=== PATIENT | female | born 1970 | race Caucasian/White ===

== ENCOUNTER 2017-10-23 19:27 | Emergency (ER) | payer MEDICAID, OTHER ==
[~2017-10-23] VITALS: Ht 165.1 cm; Wt 49.9 kg
--- NOTE | 2017-10-23 19:40 | NUR ---
PT A/OX4 BREATHING EFFORTLESSLY ON ROOM AIR, PT C/O ABSCESS ON LEFT HIP X 2 DAYS, PT STATES SHE HAS BEEN SHOOTING UP IN THAT HIP AND NOW THERE IS AN ABSCESS, PT FRIEND IN ROOM, PT IN GOWN, ON MONITOR, MADE AWARE WILL CONTINUE TO MONITOR.
[2017-10-23] MEDS ORDERED: CLINDAMYCIN 900 MG in IV D5W 100 ML IM ONE (20:00)
[2017-10-23] MEDS ORDERED: HYDROMORPHONE 1 MG/1 ML DISP.SYRIN IM ONE (20:00)
[2017-10-23] MEDS ORDERED: LIDOCAINE HCL/PF 1% 30 ML VIAL TP ONE (20:00)
[2017-10-23] MEDS ORDERED: HYDROMORPHONE 1 MG/1 ML DISP.SYRIN ONE (20:10)
[2017-10-23] MEDS ORDERED: LIDOCAINE HCL/PF 1% 30 ML SDV ONE (20:11)
[2017-10-23] MEDS ORDERED: CLINDAMYCIN HCL 150 MG CAPSULE PO ONE ×2 (20:20→21:30)
[2017-10-23] MEDS ORDERED: CLINDAMYCIN 900 MG in IV D5W 50 ML IV ONE (20:30)
[2017-10-23] MEDS ORDERED: CLINDAMYCIN 900 MG/6 ML VIAL IM ONE (20:30)
[2017-10-23 21:49] VITALS: BP 124/70
== END 2017-10-23 21:50 | disposition home or self-care (01) ==
LOC: ER 19:30
DX: L02.416 Cutaneous abscess of left lower limb (principal); F11.10 Opioid abuse, uncomplicated; Z88.0 Allergy status to penicillin; Z98.890 Other specified postprocedural states
CPT/HCPCS: 10060; 99283; A4606; A6402 ×2; A6407; J1170; J3490 ×3; J7060; Z7610

== ENCOUNTER 2017-11-29 23:53 | Emergency (ER) | payer MEDICAID ==
[~2017-11-29] VITALS: Ht 167.6 cm; Wt 54.4 kg
--- NOTE | 2017-11-30 00:06 | NUR ---
PT BIBSELF AMBULATORY TO ER BED 2 PT C/O RIGHT 1ST TOE PAIN, SWELLING X 2 DAYS. PT AOX3 RR EVEN AND UNLABORED. NO SOB NOTED. NAD NOTED. NO NVD AT THIS TIME. PT GOWNED AND PLACED ON MONITOR WAITING FOR MD [place]ANE.
--- NOTE | 2017-11-30 00:22 | NUR ---
DR. THOMPSON AT BEDSIDE FOR EVAL.
[2017-11-30] MEDS ORDERED: SULFAMETH/TRIMETH 800/160 MG 1 UDTAB TABLET PO ONE ×2 (00:30→00:51)
[2017-11-30] MEDS ORDERED: CEFTRIAXONE 1 G VIAL IM ONE (00:30)
[2017-11-30] MEDS ORDERED: ONDANSETRON 4 MG TAB.RAPDIS SL ONE (00:30)
[2017-11-30] MEDS ORDERED: HYDROCODONE/APAP 10/325MG 1 EA TABLET PO ONE (00:30)
[2017-11-30] MEDS ORDERED: HYDROCODONE/APAP 10/325MG 1 EA TABLET ONE (00:51)
[2017-11-30] MEDS ORDERED: ONDANSETRON 4 MG TAB.RAPDIS ONE (00:51)
[2017-11-30] MEDS ORDERED: LIDOCAINE /MPF 1% VIAL 5 ML VIAL ONE (00:54)
[2017-11-30] MEDS ORDERED: CEFTRIAXONE 1 G VIAL ONE (00:54)
--- NOTE | 2017-11-30 01:02 | NUR ---
Patient discharged to home in stable condition. Written and verbal after care instructions given. Patient verbalizes understanding of instruction. ambulatory with a steady gait. instructed pt not to drive. pt verbalize understanding.
[2017-11-30 01:04] VITALS: BP 116/58
== END 2017-11-30 01:47 | disposition home or self-care (01) ==
LOC: ER 11-30
DX: L03.031 Cellulitis of right toe (principal); Z88.0 Allergy status to penicillin; Z98.890 Other specified postprocedural states
CPT/HCPCS: 96372; 99284; A4606; J0696; J3490; J7030; Q0162; Z7610

== ENCOUNTER 2017-12-06 07:32 | Inpatient (IN) | payer MEDICAID ==
[~2017-12-06] VITALS: Ht 165.1 cm; Wt 49.9 kg
[2017-12-06] MEDS ORDERED: VANCOMYCIN 1 GM in IV D5W 250 ML IV ONE (08:30)
[2017-12-06] MEDS ORDERED: LEVOFLOXACIN 750 MG /D5W 150ML 150 ML IV ONE ×2 (08:30→09:21)
[2017-12-06 08:50] LABS: BASOPHILS % (AUTO) 0.5 % (0.0-2.0); EOSINOPHILS # (AUTO) 0.3 /CMM (0.0-0.7); EOSINOPHILS % (AUTO) 4.3 % (0.0-6.0); HEMATOCRIT 36 % (33-45); HEMOGLOBIN 11.8 g/dL (11.5-14.8); LYMPHOCYTES # (AUTO) 0.7 /CMM (0.8-4.8); LYMPHOCYTES % (AUTO) 10.9 % (20.0-44.0); MEAN CORPUSCULAR HEMOGLOBIN 25 PG (26.0-33.0); MEAN CORPUSCULAR HGB CONC 33 g/dl (31.0-36.0); MEAN CORPUSCULAR VOLUME 76 fL (82-100); MONOCYTES # (AUTO) 0.8 /CMM (0.1-1.30); MONOCYTES % (AUTO) 11.9 % (2.0-12.0); NEUTROPHILS # (AUTO) 4.7 /CMM (1.8-8.9); NEUTROPHILS % (AUTO) 72.4 % (43.0-81.0); PLATELET COUNT (AUTO) 634 /CMM (150-450); RDW COEFFICIENT OF VARIATION 14.7 (11.5-15.0); RED BLOOD CELL COUNT(AUTO) 4.74 MIL/uL (4.0-5.2); WHITE BLOOD COUNT (AUTO) 6.6 K/uL (4.3-11.0)
--- NOTE | 2017-12-06 08:50 | NUR ---
AAOX3, CAME TO ER C/O RIGHT BIG TOE ABSCESS X 4 DAYS. RR IS EVEN AND UNLABORED WITH NAD NOTED. SKIN IS WARM AND DRY. PLACED ON HOSPITAL GOWN. PROVIDED WARM BLANKET FOR COMFORT.
--- NOTE | 2017-12-06 09:09 | NUR ---
PANEL ON-CALL PAGED
--- NOTE | 2017-12-06 09:10 | NUR ---
REPORT GIVEN TO ASHA ROMERO FOR TRENA
[2017-12-06 09:15] LABS: INR 0.9 (0.87-1.13)
[2017-12-06 09:24] LABS: ALANINE AMINOTRANSFERASE 74 U/L (12-78); ALKALINE PHOSPHATASE 97 U/L (46-116); ASPARTATE AMINOTRANSFERASE 43 U/L (15-37); BILIRUBIN,DIRECT 0.1 mg/dL (0.0-0.2); BILIRUBIN,TOTAL 0.3 mg/dL (0.2-1.0); CARBON DIOXIDE 27 mmol/L (21-32); CHLORIDE 104 mmol/L (98-107); CREATININE 0.7 mg/dL (0.6-1.3); GLUCOSE 92 mg/dL (74-106); POTASSIUM 4.2 mmol/L (3.5-5.1); SODIUM SERUM 137 mmol/L (136-145); TOTAL PROTEIN, SERUM 8.5 g/dL (6.4-8.2); UREA NITROGEN, BLOOD 22 mg/dL (7-18)
--- NOTE | 2017-12-06 09:24 | NUR ---
CAPPITATED TO [facility] CALLING NOW
--- NOTE | 2017-12-06 09:25 | NUR ---
PT IS CAPITED TO [facility] PER LEBRON @ ADMITTING OFFICE. LEBRON WILL PALCE A CALL WITH [facility] FOR TRANSFER. COUNT DOWN TIME: 0925AM 12/06/17.
[2017-12-06 09:26] LABS: TROPONIN I < 0.017 ng/mL (0.00-0.056)
--- NOTE | 2017-12-06 09:45 | NUR ---
HIVES AND REDNESS NOTED ON LEFT FOREARM. STOPPED THE INFUSION. DR EWING MADE AWARE. VERBALLY ORDERED IVP BENADRYL 50MG
[2017-12-06] MEDS ORDERED: diphenhydrAMINE HCL 50 MG/ML VIAL ONE (09:46)
[2017-12-06] MEDS ORDERED: diphenhydrAMINE HCL 50 MG/ML VIAL IV ONE (10:00)
--- NOTE | 2017-12-06 11:57 | NUR ---
MS RN NOTES RECEIVED REPORT FROM [facility]. PATIENT VS STABLE UPON TRANSFER.
[2017-12-06] MEDS ORDERED: CLINDAMYCIN IV RTU IN D5W 900 MG/50 ML PIGGYBACK IV SCH (12:00)
[2017-12-06 12:18] LABS: APPEARANCE,URINE SL CLOUDY (CLEAR); BILIRUBIN,URINE NEGATIVE (NEGATIVE); BLOOD, URINE TRACE-INTA Ery/uL (NEGATIVE); COLOR,URINE YELLOW (YELLOW); KETONES,URINE NEGATIVE (NEGATIVE); LEUKOCYTE ESTERASE ,URINE NEGATIVE (NEGATIVE); NITRITE, URINE NEGATIVE (NEGATIVE); PROTEIN,URINE NEGATIVE (NEGATIVE); UGLUCOSE NEGATIVE (NEGATIVE)
[2017-12-06 12:38] VITALS: BP 114/75
--- NOTE | 2017-12-06 12:52 | NUR ---
MS RN NOTES CONTACTED [facility] REGARDING WOUND CULTURE. CULTURE TOMORROW AFTER WOUND DEBRIDEMENT
[2017-12-06 12:59] LABS: BACTERIA,URINE Few /HPF (None Seen); RBC,URINE 0-2 /HPF (0-2); SQUAMOUS EPITHELIAL CELL,UR Few /HPF (None Seen)
[2017-12-06] MEDS: CLINDAMYCIN 900 MG in IV D5W 50 ML IV SCH ×2 (13:21→21:46)
--- NOTE | 2017-12-06 14:00 | NUR ---
MS/RN NOTES RECEIVED REPORT FROM DAY SHIFT NURSE FOR TRENA. PATIENT RESTING IN BED COMFORTABLY, NO S/S OF DISTRESS OR DISCOMFORT NOTED. PATIENT DENIES PAIN AT THIS TIME. PT ALERT AND ORIENTED X4, VERBALLY RESPONSIVE, ON ROOM AIR, BREATHING EVEN AND UNLABORED. PT ADMITTED FOR NECROTIC RIGHT BIG TOE WOUND PLAN OF DEBRIDEMENT. IV TO LEFT FA 20G INTACT H/L. SAFETY MEASURES RENDERED, CALL LIGHT PLACED WITHIN REACH. WILL CONTINUE TO MONITOR.
--- NOTE | 2017-12-06 14:01 | NUR ---
WOUND CARE CONSULT WOUND CARE RECEIVED CONSULT FOR TOE WOUND. WOUND CARE WILL DEFER TO PODIATRIC SURGEON FOR CONSULT AND TREATMENT PLAN. PATIENT WITH HARVEY AT 23 AT THIS TIME.
--- NOTE | 2017-12-06 19:42 | NUR ---
MS/RN NOTES PATIENT RESTING IN BED COMFORTABLY. NO S/S OF DISTRESS OR DISCOMFORT NOTED. PATIENT DENIES PAIN OR DISCOMFORT AT THIS TIME. PATIENT SIGNED ALL CONSENTS FOR PENDING SX FOR AM. NPO MIDNIGHT ORDERED BY MD. ALL NEEDS MET AND ATTENDED, SAFETY MEASURES RENDERED, CALL LIGHT PLACED WITHIN REACH. WILL ENDORSE CARE TO WINE MANAGER FOR TRENA
[2017-12-06 20:00] VITALS: BP 107/63
--- NOTE | 2017-12-06 20:00 | NUR ---
RN INITIAL NOTES RECEIVED PATIENT RESTING IN BED COMFORTABLY. NO S/S OF DISTRESS OR DISCOMFORT NOTED. PATIENT DENIES PAIN OR DISCOMFORT AT THIS TIME. IV IN PTS L FA H/L. SAFETY MEASURES IN PLACE , CALL LIGHT PLACED WITHIN REACH.BED IN LOW LOCKED POSITION. WILL ENDORSE TO AM RN.
[2017-12-07] VITALS: BP 107/63
[2017-12-07 04:00] VITALS: BP 93/60
[2017-12-07] MEDS: CLINDAMYCIN 900 MG in IV D5W 50 ML IV SCH ×3 (04:37→21:23)
[2017-12-07] MEDS ORDERED: LIDOCAINE 1%-EPI 1:100,000 20 ML VIAL ONE (06:52)
[2017-12-07] MEDS ORDERED: BUPIVACAINE 0.5 % PF 150 MG/30 ML VIAL ONE (06:52)
[2017-12-07] MEDS ORDERED: ANESTHESIA TRAY IN PYXIS 1 EA TRAY MC ONE (06:52)
[2017-12-07] MEDS ORDERED: LIDOCAINE 1% INJ 50 ML MDV IJ ONE (07:04)
[2017-12-07] MEDS ORDERED: FENTANYL PF 100MCG/2ML AMPUL ONE (07:06)
[2017-12-07] MEDS ORDERED: MIDAZOLAM HCL 2 MG/2ML VIAL ONE (07:07)
--- NOTE | 2017-12-07 07:31 | NUR ---
MS RN OPENING NOTES RECEIVED REPORT OF THE PATIENT. PATIENT IS IN OPERATION ROOM. PATIENT LEFT THE FLOOR AT 0630. WILL ASSESS AND MONITOR WHEN PATIENT RETURNS TO THE UNIT.
--- NOTE | 2017-12-07 07:38 | NUR ---
RN CLOSING NOTES PT WENT TO THE OR AT 0630, FOR DEBRIDEMENT OF R GREAT TOE.NO CHANGE IN PTS CONDITION OVER NIGHT.
[2017-12-07] MEDS ORDERED: POVIDONE-IODINE OINT 28.4 GM TUBE ONE (07:40)
[2017-12-07 08:00] VITALS: BP 106/70
--- NOTE | 2017-12-07 08:40 | NUR ---
PATIENT RETURNED FROM OR IN STABLE CONDITION. IN NO APPARENT DISTRESS. PATIENT DOES NOT REPORT ANY PAIN. VITAL SIGNS WNL. WILL CONTINUE TO MONITOR.
[2017-12-07] MEDS: MORPHINE SULFATE INJ 4 MG/ML DISP.SYRIN IV PRN (10:52)
--- NOTE | 2017-12-07 10:52 | NUR ---
PATIENT REPORTS 9/10 PAIN IN THE RIGHT TOE FROM HER DEBRIDEMENT. GAVE 2MG IV MORPHINE.
[2017-12-07] MEDS: KETOROLAC TROMETHAMINE INJ 30 MG/ML VIAL IV SCH ×3 (14:00→19:56)
[2017-12-07] MEDS: METHADONE HCL 10 MG TABLET PO SCH ×2 (14:00→14:31)
[2017-12-07] MEDS: ACETAMINOPHEN 325 MG TABLET PO SCH ×3 (14:00→19:56)
[2017-12-07 16:00] VITALS: BP 97/55
--- NOTE | 2017-12-07 18:53 | NUR ---
MS RN CLOSING NOTES PATIENT IS IN STABLE CONDITION. IN NO APPARENT DISTRESS. BEDSIDE RAILS ARE UPX2. BED IS LOCKED AND LOWERED. IV LINE IS INTACT AND PATENT. CALL LIGHT IS WITHIN REACH. ALL NEEDS WERE MET. WILL ENDORSE CARE TO VP OF CUSTOMER EXPERIENCE STRATEGY NURSE FOR TRENA.
--- NOTE | 2017-12-07 19:45 | NUR ---
MS RN NOTE RECEIVED PATIENT FROM DAY SHIFT, PATIENT IS ALERT AND ORIENTEDX3, AMBULATORY WITH A WALKER. DENIES RESPIRATORY DISTRESS AND COMPLAINS OF PAIN ON RIGHT FOOT, WILL ADMINISTER PAIN MED PER ORDER. LEFT FA IV IS PATENT AND INTACT, HL ONLY. SRX2, BED IN LOW POSITION, CALL LIGHT WITHIN REACH, WILL CONTINUE TO MONITOR PATIENT.
--- NOTE | 2017-12-07 21:30 | NUR ---
MS RN NOTE PATIENT'S IV SITE WAS SWOLLEN AND COMPLAINS OF BURNING SENSATION. REINSERTED IV ACCESS ON LEFT FA 22G, GOOD BLOOD RETURN NOTED.
[2017-12-08] MEDS: KETOROLAC TROMETHAMINE INJ 30 MG/ML VIAL IV SCH ×3 (01:46→13:06)
[2017-12-08] MEDS: ACETAMINOPHEN 325 MG TABLET PO SCH ×4 (01:46→20:18)
[2017-12-08 04:00] VITALS: BP 95/57
[2017-12-08] MEDS: CLINDAMYCIN 900 MG in IV D5W 50 ML IV SCH ×3 (04:59→20:18)
--- NOTE | 2017-12-08 06:51 | NUR ---
MS RN NOTE PATIENT IS SLEEPING IN BED COMFORTABLY, NO ACUTE EVENT NOTED THROUGHOUT THE TOY PAINTER. WILL ENDORSE TO DAY SHIFT FOR TRENA.
--- NOTE | 2017-12-08 07:30 | NUR ---
RN MS NOTES PT IN BED, ASLEEP, BREATHING PATTERN NORMAL, WITH COMPLAINT OF PAIN TO RIGHT BIG TOE, DRESSING DRY AND INTACT, CALL LIGHT WITHIN REACH, NEEDS ATTENDED.
[2017-12-08 08:00] VITALS: BP 107/69
[2017-12-08] MEDS: METHADONE HCL 10 MG TABLET PO SCH (08:16)
--- NOTE | 2017-12-08 12:32 | NUR ---
RN MS NOTES PT IN BED, ASLEEP, EASILY AROUSABLE, NO COMPLAINT OF PAIN AT THIS TIME, RESPIRATIONS NORMAL, CALL LIGHT WITHIN REACH, NEEDS ATTENDED.
[2017-12-08 16:00] VITALS: BP 109/70
[2017-12-08] MEDS: MORPHINE SULFATE INJ 4 MG/ML DISP.SYRIN IV PRN ×2 (16:22→20:25)
--- NOTE | 2017-12-08 18:07 | NUR ---
RN MS NOTES PT IN BED, AWAKE, ALERT AND ORIENTED, PAIN MEDICATION GIVEN FOR RIGHT BIG TOE PAIN, ASSISTED WITH NEEDS, ACCOMPANIED PT OUTSIDE TO SMOKE, PT SIGNED SMOKING WAIVER FORM, PT AWARE THAT THE HOSPITAL IS A NON SMOKING FACILITY, PT SEEN BY DR. JAMISON TODAY, CALL LIGHT WITHIN REACH, NEEDS ATTENDED.
--- NOTE | 2017-12-08 19:30 | NUR ---
MS RN OPENING NOTES: PATIENT IN BED, AOX4, ON ROOM AIR, BREATHING EVEN AND UNLABORED. APPEARS CALM AND IN NO DISTRESS, BUT STATES THAT SHE HAS 7/10 PAIN VOER HER R BIG TOE. NOTED R TOE WITH CLEAN AND INTACT DRESSING, R FOOT IN BOOT. PIV OVER LFA G 22 INTACT AND PATENT TO FLUSH. PROVIDED FOR COMFORT AND SAFETY. BED IN LOWEST AND LOCKED POSITION, SIDERAILS UP X 3, CALL LIGHT WITHIN REACH. WILL CONT TO MONITOR.
[2017-12-08 20:00] VITALS: BP 110/72
[2017-12-09] MEDS: ACETAMINOPHEN 325 MG TABLET PO SCH ×4 (02:00→19:39)
--- NOTE | 2017-12-09 02:30 | NUR ---
RN NOTES: PATIENT AWAKE NOW, BUT REFUSED TYLENOL.
[2017-12-09 04:00] VITALS: BP 96/60
[2017-12-09] MEDS: CLINDAMYCIN 900 MG in IV D5W 50 ML IV SCH ×2 (04:31→12:34)
--- NOTE | 2017-12-09 07:29 | NUR ---
MS RN CLOSING NOTES: PATIENT IN BED, AOX4, ON ROOM AIR, BREATHING EVEN AND UNLABORED. APPEARS CALM AND IN NO DISTRESS. DENIES PAIN AT THIS TIME. DRESSING OVER R FOOT CLEAN AND INTACT, MAINTAINED ON BOOT. PROVIDED FOR COMFORT AND SAFETY. BED IN LOWEST AND LOCKED POSITION, SIDERAILS UP X 3, CALL LIGHT WITHIN REACH. WILL ENDORSE TO AM RO FOR TRENA.
--- NOTE | 2017-12-09 07:30 | NUR ---
RN OPENING NOTES. PT RECEIVED A&0X3, TOLERATING ROOM AIR WITHOUT SOB AND SAO2 WNL. PT WITH REPORTS SOME PAIN TO R BIG TOE/FOOT. PT WITH IVC AT L FA G#22 SALINE FLUSHED PATENT. PT BED IN LOWEST LOCKED POSITION WITH HANDRAILS X2 AND CALL [place] WITHIN REACH. PT BRIEFED ON TODAY'S POC AND IS WITHOUT CONCERN OR COMPLAINT AT THIS TIME.
[2017-12-09] MEDS: METHADONE HCL 10 MG TABLET PO SCH (08:34)
[2017-12-09] MEDS ORDERED: METH10TA2 PO (11:04)
[2017-12-09] MEDS ORDERED: OXYC5CAP18 PO (11:04)
[2017-12-09] MEDS ORDERED: CLIN300C11 PO (11:04)
[2017-12-09] MEDS: MORPHINE SULFATE INJ 4 MG/ML DISP.SYRIN IV PRN ×2 (12:35→18:05)
--- NOTE | 2017-12-09 18:22 | NUR ---
RN CLOSING NOTES. PT REMAINS A&0X3, TOLERATING ROOM AIR WITHOUT SOB AND SAO2 WNL. PT REPORTS CURRENT PAIN MANAGEMENT ADEQUATE. PT WITH IVC AT L FA G#22 SALINE LOCKED. PT BED IN LOWEST LOCKED POSITION WITH HANDRAILS X2 AND CALL [place] WITHIN REACH. PT BRIEFED ON SOH D/C PACKET, MEDICATIONS, SCRIPT AND IS VERBALIZING UNDERSTANDING, RESOURCES AND INTENT TO FOLLOW POC. PT PROVIDED WITH WALKER AND WOUND CARE SUPPLIES PER ORDER. PT ENDORSED TO NIGHT SHIT UNTIL D/C. PT DRESSING NOTE CHANGED PER MD, NO PHOTOGRAPHS TAKEN. PT WITH ALL BELONGINGS AND DOCUMENT SIGNED. PT CLEAR ON POC, ALL DAY NURSE DUTIES ATTENDED TO AND PT IS WITHOUT CONCERN OR COMPLAINT AT THIS TIME.
--- NOTE | 2017-12-09 21:52 | NUR ---
SHOWROOM SALESPERSON NOTES PATIENT PICKED UP BY FAMILY MEMBER. REMOVED PERIPHERAL IV LINE. ASSISTED PATIENT TO THE LOBBY. PATIENT IS USING WALKER.IN STABLE CONDITION.
--- NOTE | 2017-12-10 13:25 | NUR ---
Small Engine Trainer consult was requested by Dr. Devi in regards to homelessness. SW went to assess pt. however, patient was already discharged.
== END 2017-12-09 21:50 | disposition home or self-care (01) | DRG 383 ==
LOC: ER 07:33 → MEDSG1 11:09
PROVIDERS: ADMIT Internal Medicine; ATTEND Internal Medicine
PROC: 0JBQ0ZZ Excision of Right Foot Subcutaneous Tissue and Fascia, Open Approach (ICD-10-PCS; principal; 2017-12-07 07:00)
DX: L03.115 Cellulitis of right lower limb (principal); E43 Unspecified severe protein-calorie malnutrition; S91.111A Laceration without foreign body of right great toe without damage to nail, initial encounter; E88.09 Other disorders of plasma-protein metabolism, not elsewhere classified; Z59.0 Homelessness; F17.200 Nicotine dependence, unspecified, uncomplicated; G89.4 Chronic pain syndrome; Z88.1 Allergy status to other antibiotic agents; M62.50 Muscle wasting and atrophy, not elsewhere classified, unspecified site; X58.XXXA Exposure to other specified factors, initial encounter; Y93.9 Activity, unspecified; Y92.89 Other specified places as the place of occurrence of the external cause; Z68.1 Body mass index [BMI] 19.9 or less, adult; F11.10 Opioid abuse, uncomplicated; M86.8X7 Other osteomyelitis, ankle and foot
CPT/HCPCS: 36415; 71045-TC; 73660-TC; 80048-TC; 80076-TC; 80305; 81000-TC; 82962-TC; 83605-TC; 84484-TC; 85025-TC; 85652-TC; 85730-TC; 86850-TC; 87040-TC; 87070-TC; 87075-TC; 87081-TC; 87086-TC; A4606; A6402; J1200; J1885; J1956; J2250; J2270; J3010; J3370; J3490; J7050; J7060; Z7610

== ENCOUNTER 2017-12-13 03:08 | Emergency (ER) | payer MEDICAID ==
[~2017-12-13] VITALS: Ht 165.1 cm; Wt 49.9 kg
[~2017-12-13 03:08] MED LIST: CLIN300C11 PO; METH10TA2 PO; OXYC5CAP18 PO
[2017-12-13 03:15] VITALS: BP 129/78
--- NOTE | 2017-12-13 03:45 | NUR ---
Patient discharged to home in stable condition. Written and verbal after care instructions given. Patient verbalizes understanding of instruction. VSS upon discharge
== END 2017-12-13 03:38 | disposition home or self-care (01) ==
LOC: ER 03:09
DX: S91.311D Laceration without foreign body, right foot, subsequent encounter (principal); F17.200 Nicotine dependence, unspecified, uncomplicated; Z88.0 Allergy status to penicillin; Z88.1 Allergy status to other antibiotic agents; Z98.890 Other specified postprocedural states
CPT/HCPCS: 99282; A4606; Z7610